=== PATIENT | male | born 2000 | race Caucasian/White ===

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

== ENCOUNTER 2021-02-07 09:22 | Emergency (ER) | payer BC ==
[~2021-02-07] VITALS: Ht 182.8 cm; Wt 81.6 kg
[~2021-02-07 09:22] MED LIST changes: +AUGMENTIN 500500 M1 PO; +CLARITIN10 MG PO; +FLONASE ALLERG9.9 ML NAS; +PREDNISONE10 MG PO; +ZOFRAN4 MG PO
[2021-02-07 09:34] VITALS: BP 134/75
[2021-02-07 10:06] LABS: BASO # 0.1 10*3/uL (0.0-0.1); BASO % 0.7 % (0.0-1.0); EOS # 0.1 10*3/uL (0.0-0.4); HEMATOCRIT 46.1 % (42.0-52.0); LYMPH % 27.9 % (27.0-41.0); MEAN CELL VOLUME 86.2 fl (80.0-94.0); MEAN CORPUSCULAR HGB CONC 32.5 g/dl (33.0-37.0); MEAN PLATELET VOLUME 9.4 fl (9.6-12.3); MONO # 0.5 10*3/uL (0.1-1.0); MONO % 7.5 % (3.0-9.0); NEUT # 4.4 10*3/uL (2.3-7.9); NEUT % 61.8 % (47.0-73.0); PLATELET COUNT AUTOMATED 290 10*3/uL (130-400); RED BLOOD COUNT 5.35 10*6/uL (4.50-5.90); RED CELL DISTRI WIDTH 12.7 % (0-14.5); WHITE BLOOD COUNT 7.2 10*3/uL (4.8-10.8)
[2021-02-07 10:21] LABS: ALKALINE PHOSPHATASE 75 U/L (45-117); BUN 16 mg/dl (7-24); CHLORIDE 111 mmol/L (98-107); CREATININE 0.85 mg/dL (0.70-1.30); SGOT/AST 16 IU/L (3-35); SGPT/ALT 29 U/L (12-78); SODIUM 140 mmol/L (136-145); TOTAL PROTEIN 7.5 gm/dL (6.4-8.2)
[2021-02-07 10:23] LABS: ACETAMINOPHEN (TYLENOL) < 5.0 ug/ml (10-30); ETHYL ALCOHOL < 3.0 mg/dl (<3)
[2021-02-07 10:50] LABS: BILIRUBIN Negative (Negative); BLOOD Negative (Negative); CLARITY Turbid (Clear); COLOR Yellow (Yellow); GLUCOSE Negative (Negative); KETONE Negative (Negative); LEUKO ESTERASE Negative (Negative); NITRITE Negative (Negative); SPECIFIC GRAVITY 1.025 (1.001-1.030)
[2021-02-07 11:07] LABS: URINE AMPHETAMINES < 1000 (1000ng/ml); URINE BARBITURATES < 200 (200ng/ml); URINE BENZODIAZEPINES < 200 (200ng/ml); URINE CANNABINOIDS (THC) > 50 (50ng/ml); URINE COCAINE < 300 (300ng/ml); URINE METHADONE < 300 (300ng/ml); URINE OPIATES < 300 (300ng/ml)
[2021-02-07 11:08] LABS: URINE PHENCYCLIDINE < 25 (25ng/ml)
== END 2021-02-07 12:11 | disposition home or self-care (01) ==
LOC: ED 09:22
PROVIDERS: Student in an Organized Health Care Education/Training Program
DX: F32.9 Major depressive disorder, single episode, unspecified (principal); F41.9 Anxiety disorder, unspecified

== ENCOUNTER 2024-04-06 08:12 | Emergency (ER) | payer BC ==
[~2024-04-06] VITALS: Ht 198.1 cm; Wt 95.3 kg
[2024-04-06 08:20] VITALS: BP 133/81
[2024-04-06] MEDS ORDERED: diphenhydrAMINE hydrochloride 50 MG/ML VIAL IV ONE (08:30)
[2024-04-06] MEDS ORDERED: FAMOTIDINE 50 ML IV ONE (08:30)
[2024-04-06] MEDS ORDERED: SODIUM CHLORIDE 0.9% 1,000 ML IV ONE (08:30)
[2024-04-06] MEDS ORDERED: Metoclopramide Hydrochloride 10 MG/2 ML VIAL IV ONE (08:30)
[2024-04-06] MEDS ORDERED: MORPHINE Sulfate 2 MG/ML SYR IV ONE (08:30)
[2024-04-06 08:51] LABS: HEMATOCRIT 48.5 % (42.0-52.0); MANUAL DIFF REFLEX YES; MEAN CORPUSCULAR HGB 27.9 pg (27.0-31.0); MEAN CORPUSCULAR HGB CONC 33.6 g/dl (33.0-37.0); MEAN PLATELET VOLUME 9.2 fl (9.6-12.3); PLATELET COUNT AUTOMATED 330 10*3/uL (130-400); RED BLOOD COUNT 5.84 10*6/uL (4.50-5.90); RED CELL DISTRI WIDTH 12.8 % (0-14.5)
[2024-04-06 09:09] LABS: BUN 16 mg/dl (9-23); CHLORIDE 101 mmol/L (98-107); LIPASE 23 U/L (12-53); POTASSIUM 3.8 mmol/L (3.4-5.1)
[2024-04-06 09:14] LABS: ATYPICAL LYMPHS 2 % (0-0); PLATELET SUFFICIENCY NORMAL (NORMAL); TOTAL CELLS COUNTED 100 #CELLS
[2024-04-06 09:16] LABS: VACUOLATION OF NEUTROPHILS SLIGHT
[2024-04-06] MEDS ORDERED: Ondansetron4 MG PO (09:29)
[2024-04-06] MEDS ORDERED: DICYCLOMINE HYD20 MG PO (09:29)
[2024-04-06] MEDS ORDERED: CIPRO500 MG PO (09:29)
[2024-04-06] MEDS ORDERED: Ciprofloxacin Hydrochloride 500 MG TAB PO ONE (09:45)
== END 2024-04-06 09:47 | disposition home or self-care (01) ==
LOC: ED 08:12
PROVIDERS: Emergency Medicine
DX: R10.84 Generalized abdominal pain (principal); R11.2 Nausea with vomiting, unspecified; R19.7 Diarrhea, unspecified; Z98.890 Other specified postprocedural states

== ENCOUNTER 2024-04-07 23:29 | Emergency (ER) | payer BC ==
[~2024-04-07] VITALS: Ht 193 cm; Wt 108.9 kg
[~2024-04-07 23:29] MED LIST changes: +CIPRO500 MG PO; +DICYCLOMINE HYD20 MG PO; +Ondansetron4 MG PO
[2024-04-07 23:49] VITALS: BP 141/86
[2024-04-07] MEDS ORDERED: SODIUM CHLORIDE 0.9% 1,000 ML IV ONE (23:50)
[2024-04-07] MEDS ORDERED: Pantoprazole Sodium 40 MG VIAL IV ONE (23:50)
[2024-04-07] MEDS ORDERED: Ondansetron Hydrochloride 4 MG/2 ML VIAL IV ONE (23:50)
[2024-04-07] MEDS ORDERED: Ketorolac Tromethamine 30 MG/ML VIAL IV ONE (23:50)
[2024-04-08 00:06] LABS: BASO % 0.1 % (0.0-1.0); EOS % 0.1 % (1.0-4.0); HEMATOCRIT 45.7 % (42.0-52.0); MEAN CELL VOLUME 81.3 fl (80.0-94.0); MEAN CORPUSCULAR HGB 28.3 pg (27.0-31.0); MEAN CORPUSCULAR HGB CONC 34.8 g/dl (33.0-37.0); MONO # 0.6 10*3/uL (0.1-1.0); MONO % 5.6 % (3.0-9.0); NEUT # 9.3 10*3/uL (2.3-7.9); NEUT % 82.2 % (47.0-73.0); PLATELET COUNT AUTOMATED 320 10*3/uL (130-400); RED BLOOD COUNT 5.62 10*6/uL (4.50-5.90); RED CELL DISTRI WIDTH 12.6 % (0-14.5); WHITE BLOOD COUNT 11.3 10*3/uL (4.8-10.8)
[2024-04-08 00:30] LABS: ALKALINE PHOSPHATASE 73 U/L (46-116); BUN 18 mg/dl (9-23); CHLORIDE 99 mmol/L (98-107); LIPASE 26 U/L (12-53); POTASSIUM 3.4 mmol/L (3.4-5.1); SGPT/ALT 25 U/L (5-49); TOTAL PROTEIN 8.4 gm/dL (6.0-8.0)
[2024-04-08] MEDS ORDERED: DIAZEPAM 10 MG/2 ML SYR IV ONE (01:25)
[2024-04-08] MEDS ORDERED: HYDROmorphONE Hydrochloride 0.5 MG/0.5 ML SYRINGE IV ONE (02:15)
[2024-04-09] MEDS ORDERED: OMEPRAZOLE40 MG PO (18:16)
[2024-04-09] MEDS ORDERED: REGLAN10 M1 PO (18:16)
== END 2024-04-08 02:24 | disposition home or self-care (01) ==
LOC: ED 23:29
PROVIDERS: Internal Medicine
DX: R11.15 Cyclical vomiting syndrome unrelated to migraine (principal); R10.84 Generalized abdominal pain; R11.2 Nausea with vomiting, unspecified; Z98.890 Other specified postprocedural states; Z79.899 Other long term (current) drug therapy

== ENCOUNTER 2024-04-09 12:14 | Emergency (ER) | payer BC ==
[~2024-04-09] VITALS: Ht 193 cm; Wt 99.8 kg
[2024-04-09 12:34] VITALS: BP 136/85
[2024-04-09] MEDS ORDERED: HYDROmorphONE Hydrochloride 0.5 MG/0.5 ML SYRINGE IV ONE (12:45)
[2024-04-09] MEDS ORDERED: SODIUM CHLORIDE 0.9% 1,000 ML IV ONE (12:45)
[2024-04-09] MEDS ORDERED: Ondansetron Hydrochloride 4 MG/2 ML VIAL IV ONE (12:45)
[2024-04-09] MEDS ORDERED: IOHEXOL 300 MG/ML 100 ML VIAL IV ONE (12:50)
[2024-04-09 13:16] LABS: BASO % 0.3 % (0.0-1.0); EOS % 0.1 % (1.0-4.0); HEMATOCRIT 43.4 % (42.0-52.0); MEAN CELL VOLUME 82.5 fl (80.0-94.0); MEAN CORPUSCULAR HGB 28.1 pg (27.0-31.0); MEAN CORPUSCULAR HGB CONC 34.1 g/dl (33.0-37.0); MEAN PLATELET VOLUME 9.5 fl (9.6-12.3); MONO % 8.8 % (3.0-9.0); NEUT # 7.9 10*3/uL (2.3-7.9); NEUT % 70.5 % (47.0-73.0); PLATELET COUNT AUTOMATED 314 10*3/uL (130-400); RED BLOOD COUNT 5.26 10*6/uL (4.50-5.90); RED CELL DISTRI WIDTH 12.8 % (0-14.5); WHITE BLOOD COUNT 11.2 10*3/uL (4.8-10.8)
[2024-04-09 13:37] LABS: ALKALINE PHOSPHATASE 62 U/L (46-116); BUN 17 mg/dl (9-23); CHLORIDE 100 mmol/L (98-107); LIPASE 26 U/L (12-53); POTASSIUM 3.3 mmol/L (3.4-5.1); SGPT/ALT 19 U/L (5-49); TOTAL PROTEIN 8.1 gm/dL (6.0-8.0)
[2024-04-09] MEDS ORDERED: Ketorolac Tromethamine 30 MG/ML VIAL IV ONE (15:10)
[2024-04-09 15:20] LABS: BILIRUBIN Negative (Negative); BLOOD Negative (Negative); CLARITY Cloudy (Clear); COLOR Yellow (Yellow); GLUCOSE Negative (Negative); KETONE 3+ (Negative); LEUKO ESTERASE Negative (Negative); NITRITE Negative (Negative); PH 7.5 (4.5-8.0); SPECIFIC GRAVITY >= 1.030 (1.001-1.030)
[2024-04-09] MEDS ORDERED: Pantoprazole Sodium 40 MG VIAL IV ONE (15:25)
[2024-04-09] MEDS ORDERED: Metoclopramide Hydrochloride 10 MG/2 ML VIAL IV ONE (15:25)
[2024-04-09] MEDS ORDERED: diphenhydrAMINE hydrochloride 50 MG/ML VIAL IV ONE (15:25)
[2024-04-09 15:33] LABS: BACTERIA TRACE; FINE GRANULAR CAST 0-2; WBC 0-2 wbc/hpf (0-5)
[2024-04-09] MEDS ORDERED: POTASSIUM CHLORIDE 20 MEQ TAB PO ONE (16:45)
[2024-04-09] MEDS ORDERED: Lidocaine Hydrochloride 15 ML UDC PO STA (17:44)
[2024-04-09] MEDS ORDERED: MG-AL HYDROXIDE/SIMETICONE 30 ML UDC PO STA (17:44)
[2024-04-09] MEDS ORDERED: Dicyclomine Hydrochloride 20 MG/10 ML OSYR PO STA (17:44)
[2024-04-09] MEDS ORDERED: REGLAN10 M1 PO (18:16)
[2024-04-09] MEDS ORDERED: OMEPRAZOLE40 MG PO (18:16)
== END 2024-04-09 18:27 | disposition home or self-care (01) ==
LOC: ED 12:14
PROVIDERS: Nurse Practitioner Family
DX: K52.9 Noninfective gastroenteritis and colitis, unspecified (principal); E87.6 Hypokalemia; N13.30 Unspecified hydronephrosis; F41.9 Anxiety disorder, unspecified; Z98.890 Other specified postprocedural states

== ENCOUNTER 2024-04-11 06:43 | Emergency (ER) | payer BC ==
[~2024-04-11] VITALS: Ht 193 cm; Wt 99.8 kg
[~2024-04-11 06:43] MED LIST changes: +OMEPRAZOLE40 MG PO; +REGLAN10 M1 PO
[2024-04-11] MEDS ORDERED: diphenhydrAMINE hydrochloride 50 MG/ML VIAL IV ONE (07:20)
[2024-04-11] MEDS ORDERED: FAMOTIDINE 50 ML IV ONE (07:20)
[2024-04-11] MEDS ORDERED: Metoclopramide Hydrochloride 10 MG/2 ML VIAL IV ONE (07:20)
[2024-04-11] MEDS ORDERED: SODIUM CHLORIDE 0.9% 1,000 ML IV ONE (07:20)
[2024-04-11] MEDS ORDERED: MORPHINE Sulfate 2 MG/ML SYR IV ONE (07:25)
[2024-04-11 07:45] LABS: BASO % 0.3 % (0.0-1.0); EOS % 0.5 % (1.0-4.0); HEMATOCRIT 42.2 % (42.0-52.0); MEAN CELL VOLUME 82.7 fl (80.0-94.0); MEAN CORPUSCULAR HGB 27.8 pg (27.0-31.0); MEAN CORPUSCULAR HGB CONC 33.6 g/dl (33.0-37.0); MEAN PLATELET VOLUME 8.9 fl (9.6-12.3); MONO # 0.7 10*3/uL (0.1-1.0); NEUT # 5.6 10*3/uL (2.3-7.9); NEUT % 62.9 % (47.0-73.0); PLATELET COUNT AUTOMATED 270 10*3/uL (130-400); RED CELL DISTRI WIDTH 12.5 % (0-14.5); WHITE BLOOD COUNT 8.8 10*3/uL (4.8-10.8)
[2024-04-11 08:06] LABS: BUN 11 mg/dl (9-23); CHLORIDE 104 mmol/L (98-107); POTASSIUM 3.4 mmol/L (3.4-5.1)
[2024-04-11 08:09] VITALS: BP 104/57
[2024-04-11 08:12] LABS: LIPASE 40 U/L (12-53)
[2024-04-11 09:19] LABS: BILIRUBIN Negative (Negative); BLOOD Negative (Negative); CLARITY Turbid (Clear); COLOR Yellow (Yellow); GLUCOSE Negative (Negative); KETONE 3+ (Negative); LEUKO ESTERASE Negative (Negative); NITRITE Negative (Negative); PH 7.5 (4.5-8.0); SPECIFIC GRAVITY 1.015 (1.001-1.030); UROBILINOGEN 0.2 E.U./dl (0.0-1.0)
[2024-04-11 09:50] LABS: URINE AMPHETAMINES Negative (1000ng/ml); URINE BARBITURATES Negative (200ng/ml); URINE BENZODIAZEPINES Positive (200ng/ml); URINE CANNABINOIDS (THC) Positive (50ng/ml); URINE COCAINE Negative (300ng/ml); URINE METHADONE Negative (300ng/ml); URINE OPIATES Positive (300ng/ml); URINE PHENCYCLIDINE Negative (25ng/ml)
[2024-04-11 09:51] LABS: BACTERIA 2+
[2024-04-11] MEDS ORDERED: TRAMADOL HCL50 MG PO (10:08)
[2024-04-11] MEDS ORDERED: PEPCID20 MG PO (10:08)
== END 2024-04-11 10:27 | disposition home or self-care (01) ==
LOC: ED 06:43
PROVIDERS: Emergency Medicine
DX: R10.9 Unspecified abdominal pain (principal); R11.2 Nausea with vomiting, unspecified; F41.9 Anxiety disorder, unspecified; E87.6 Hypokalemia; Z98.890 Other specified postprocedural states; Z79.899 Other long term (current) drug therapy